=== PATIENT | male | born 1970 | race Hispanic/Latino ===

== ENCOUNTER 2023-06-05 11:40 | Emergency (ER) | payer BC ==
[2023-06-05] MEDS ORDERED: Acetaminophen 500 MG TAB ONE (12:15)
== END 2023-06-05 13:36 | disposition home or self-care (01) ==
LOC: ERS 11:40
DX: L03.213 Periorbital cellulitis (principal); E11.9 Type 2 diabetes mellitus without complications; Z79.84 Long term (current) use of oral hypoglycemic drugs; Z79.4 Long term (current) use of insulin
CPT/HCPCS: 99283